=== PATIENT | male | born 1955 | race Caucasian/White ===

== ENCOUNTER 2016-11-10 09:42 | Emergency (ER) | payer SELFPAY ==
[~2016-11-10] VITALS: Ht 170.2 cm; Wt 75.0 kg
[2016-11-10 15:39] VITALS: BP 115/68
== END 2016-11-10 15:45 | disposition home or self-care (01) ==
LOC: ER 10:39
DX: I83.92 Asymptomatic varicose veins of left lower extremity (principal); F11.10 Opioid abuse, uncomplicated; E05.90 Thyrotoxicosis, unspecified without thyrotoxic crisis or storm; I10 Essential (primary) hypertension; J45.909 Unspecified asthma, uncomplicated
CPT/HCPCS: 99283; Z7610

== ENCOUNTER 2017-05-11 00:01 | Emergency (ER) | payer MEDICAID ==
[~2017-05-11] VITALS: Ht 160 cm; Wt 82.0 kg
[2017-05-11] MEDS ORDERED: TETANUS, DIPHTHERIA, PERTUSSIS VAC/PF 0.5ML (>7YR OLD) IM ONE (01:30)
[2017-05-11] MEDS ORDERED: SULFAMETHOXAZOLE/TRIMETHOPRIM 800/160MG TABLET PO ONE (01:30)
[2017-05-11] MEDS ORDERED: HYDROCODONE/ACETAMINOPHEN 10/325MG TABLET PO ONE (01:30)
[2017-05-11] MEDS ORDERED: BACITRACIN ZINC OINT UDPKT TOP ONE (01:30)
[2017-05-11 05:04] VITALS: BP 136/97
== END 2017-05-11 05:34 | disposition home or self-care (01) ==
LOC: ER 00:01
DX: I83.891 Varicose veins of right lower extremity with other complications (principal); R07.89 Other chest pain; M79.605 Pain in left leg; I10 Essential (primary) hypertension; F17.200 Nicotine dependence, unspecified, uncomplicated; F11.10 Opioid abuse, uncomplicated; V28.4XXA Motorcycle driver injured in noncollision transport accident in traffic accident, initial encounter; Y93.55 Activity, bike riding; Y92.89 Other specified places as the place of occurrence of the external cause; Y99.8 Other external cause status
CPT/HCPCS: 71045; 73590; 90471; 90715; 99284; Z7610

== ENCOUNTER 2018-06-08 06:04 | Emergency (ER) | payer MEDICAID ==
[~2018-06-08] VITALS: Ht 170.2 cm; Wt 80.0 kg
[2018-06-08] MEDS ORDERED: SODIUM CHLORIDE 0.9% 1,000 ML IV ONE (07:16)
[2018-06-08] MEDS ORDERED: MORPHINE SULFATE 2 MG/ML CPJ (NOT FOR IM USE) IV ONE (07:30)
[2018-06-08 08:19] LABS: BASOPHILS % 1.3 % (0.0-2.0); EOSINOPHILS % 1.7 % (0.0-5.0); HEMATOCRIT. 34.7 % (42.0-52.0); HEMOGLOBIN. 11.4 g/dL (14.0-18.0); LYMPHOCYTES % 40.4 % (20.0-50.0); MEAN CORPUSCULAR HEMOGLOBIN 27.9 pg (28.0-32.0); MEAN CORPUSCULAR VOLUME 84.5 fL (80.0-94.0); MEAN PLATELET VOLUME 7.8 fl (7.4-10.4); MONOCYTES % 10.2 % (2.0-8.0); NEUTROPHILS % 46.4 % (40.0-76.0); PLATELET 190 x1000/uL (130-400); RED CELL DISTRIBUTION WIDTH 16.7 % (11.6-14.6)
[2018-06-08 08:24] LABS: CHLORIDE 102 mEq/L (98-107)
[2018-06-08 08:25] LABS: INR 1.2
[2018-06-08 08:29] LABS: ETHANOL BLOOD < 10 mg/dL
[2018-06-08 08:35] LABS: CREATINE KINASE MB FRACTION 4.9 ng/mL (0.5-3.6)
[2018-06-08 09:12] VITALS: BP 141/87
[2018-06-08] MEDS ORDERED: LIDOCAINE HCL 1% 20ML VIAL (Pyxis) INJ INFIL ONE (09:30)
[2018-06-08] MEDS ORDERED: MORPHINE SULFATE 4 MG/ML CPJ (NOT FOR IM USE) IV NR (10:09)
== END 2018-06-08 11:44 | disposition left against medical advice (07) ==
LOC: ER 06:21 → CANBEDREQ 12:18
DX: S09.8XXA Other specified injuries of head, initial encounter (principal); S01.81XA Laceration without foreign body of other part of head, initial encounter; R94.31 Abnormal electrocardiogram [ECG] [EKG]; I10 Essential (primary) hypertension; M50.323 Other cervical disc degeneration at C6-C7 level; J44.9 Chronic obstructive pulmonary disease, unspecified; W01.198A Fall on same level from slipping, tripping and stumbling with subsequent striking against other object, initial encounter; Y93.E1 Activity, personal bathing and showering; Y92.9 Unspecified place or not applicable; Z90.49 Acquired absence of other specified parts of digestive tract; Z98.890 Other specified postprocedural states
CPT/HCPCS: 36415; 70450; 72125; 80053; 82553; 83880; 84484; 85025; 85610; 87186; 93005; 99284; J3490; J7030; Z7610; J2270

== ENCOUNTER 2018-06-19 10:54 | Emergency (ER) | payer MEDICAID ==
[~2018-06-19] VITALS: Ht 160 cm; Wt 79.0 kg
[2018-06-19 11:29] VITALS: BP 170/98
== END 2018-06-19 14:06 | disposition home or self-care (01) ==
LOC: ER 10:54
DX: Z48.02 Encounter for removal of sutures (principal); J44.9 Chronic obstructive pulmonary disease, unspecified; I10 Essential (primary) hypertension; F17.200 Nicotine dependence, unspecified, uncomplicated; Z90.49 Acquired absence of other specified parts of digestive tract; Z98.890 Other specified postprocedural states
CPT/HCPCS: 99281; Z7610

== ENCOUNTER 2020-12-04 19:37 | Inpatient (IN) | payer MEDICAID ==
[~2020-12-04] VITALS: Ht 160 cm; Wt 62.6 kg
[2020-12-04] MEDS ORDERED: ALBUTEROL (0.083%) 2.5MG/3ML NEB HHN ONE (19:45)
[2020-12-04] MEDS ORDERED: AZITHROMYCIN 500 MG in DEXT 5% WATER 250 ML IV SCH (19:45)
[2020-12-04] MEDS ORDERED: METHYLPREDNISOLONE SOD SUCC 125 MG/2 ML VIAL IV ONE (19:45)
[2020-12-04] MEDS ORDERED: CEFTRIAXONE 1 G PREMIX 50 ML IV ONE (19:45)
[2020-12-04] MEDS ORDERED: IPRATROPIUM BROMIDE (0.02%) 0.5MG/2.5ML NEB HHN ONE (19:45)
[2020-12-04] MEDS ORDERED: SODIUM CHLORIDE 0.9% 500 ML IV ONE (21:00)
[2020-12-04 21:18] LABS: HEMATOCRIT. 41.4 % (42.0-52.0); HEMOGLOBIN. 14.3 g/dL (14.0-18.0); MEAN CORPUSCULAR HEMOGLOBIN 29.8 pg (28.0-32.0); MEAN CORPUSCULAR VOLUME 86.2 fL (80.0-94.0); MEAN PLATELET VOLUME 7.9 fl (7.4-10.4); PLATELET 346 x1000/uL (130-400); RED CELL DISTRIBUTION WIDTH 15.9 % (11.6-14.6)
[2020-12-04 21:23] LABS: CHLORIDE 93 mEq/L (98-107)
[2020-12-04] MEDS ORDERED: POTASSIUM CHLORIDE 20MEQ TABLET SR PO STA (21:50)
[2020-12-04] MEDS ORDERED: KCL 20MEQ/100ML PREMIX 100 ML IV ONE (22:00)
[2020-12-04] MEDS ORDERED: ONDANSETRON HCL 4MG/2ML INJ IV ONE (22:15)
[2020-12-04 22:33] LABS: BG BASE EXCESS 8.9 mmol/L (-2.0-2.0); BG CARBOXYHEMOGLOBIN 0.8 % (0.5-1.5); BG DEOXYHEMOGLOBIN 6.1 % (0.0-5.0); BG FRACTION INSPIRED OXYGEN 100; BG HCO3 ACT 33.1 mmol/L (22.0-26.0); BG OXYGEN SATURATION 93.9 % (92.0-98.5); BG OXYHEMOGLOBIN 93.1 % (94.0-97.0); BG PCO2 43.1 mmHg (35.0-45.0); BG PH 7.503 (7.350-7.450); BG PO2 68.7 mmHg (75.0-100.0); BG SAMPLE SITE RIGHT RADIAL; BG TOTAL HEMOGLOBIN 15.4 g/dL (12.0-18.0); BG VENT MODE MASK - CPAP
[2020-12-04 22:43] LABS: PLATELET ESTIMATE NORMAL
[2020-12-05] VITALS (17 sets, daily range): BP systolic 135–199; BP diastolic 86–146
[2020-12-05] MEDS ORDERED: PIPERACILLIN/TAZ 3.375G PREMIX 50 ML IV ONE (02:30)
[2020-12-05] MEDS ORDERED: VANCOMYCIN 1 G PREMIX 200 ML IV ONE (02:30)
[2020-12-05 03:26] LABS: BG BASE EXCESS 6.2 mmol/L (-2.0-2.0); BG CARBOXYHEMOGLOBIN 0.2 % (0.5-1.5); BG DEOXYHEMOGLOBIN 6.9 % (0.0-5.0); BG FRACTION INSPIRED OXYGEN 100; BG HCO3 ACT 30.4 mmol/L (22.0-26.0); BG METHEMOGLOBIN 0.1 % (0.0-1.5); BG OXYGEN SATURATION 93.1 % (92.0-98.5); BG OXYHEMOGLOBIN 92.8 % (94.0-97.0); BG PH 7.477 (7.350-7.450); BG PO2 66.6 mmHg (75.0-100.0); BG SAMPLE SITE RIGHT RADIAL; BG TOTAL HEMOGLOBIN 14.9 g/dL (12.0-18.0); BG VENT MODE MASK - NRB
[2020-12-05] MEDS ORDERED: POTASSIUM CHLORIDE INJ 30 MEQ in DEXT 5%/0.9% NACL 1,000 ML IV ONE (03:45)
[2020-12-05] MEDS ORDERED: MORPHINE SULFATE 4 MG/ML CPJ (NOT FOR IM USE) IV ONE (04:15)
[2020-12-05] MEDS ORDERED: NALOXONE HCL 0.4MG/ML VIAL IV PRN (07:00)
[2020-12-05 09:09] LABS: BG BASE EXCESS 6.4 mmol/L (-2.0-2.0); BG CARBOXYHEMOGLOBIN 0.2 % (0.5-1.5); BG DEOXYHEMOGLOBIN 9.6 % (0.0-5.0); BG FRACTION INSPIRED OXYGEN 100; BG HCO3 ACT 29.8 mmol/L (22.0-26.0); BG METHEMOGLOBIN 0.1 % (0.0-1.5); BG OXYGEN SATURATION 90.4 % (92.0-98.5); BG OXYHEMOGLOBIN 90.1 % (94.0-97.0); BG PCO2 38.7 mmHg (35.0-45.0); BG PH 7.505 (7.350-7.450); BG SAMPLE SITE RIGHT BRACHIAL; BG VENT MODE MASK - NRB
[2020-12-05 11:01] LABS: HEMATOCRIT. 37.7 % (42.0-52.0); HEMOGLOBIN. 12.4 g/dL (14.0-18.0); MEAN CORPUSCULAR HEMOGLOBIN 28.8 pg (28.0-32.0); MEAN CORPUSCULAR VOLUME 87.5 fL (80.0-94.0); MEAN PLATELET VOLUME 8.2 fl (7.4-10.4); PLATELET 219 x1000/uL (130-400); RED CELL DISTRIBUTION WIDTH 15.6 % (11.6-14.6)
[2020-12-05] MEDS ORDERED: DEXT 5%/0.9% NACL 1,000 ML IV ONE (14:00)
[2020-12-05] MEDS ORDERED: CEFTRIAXONE 1 G PREMIX 50 ML IV SCH (14:30)
[2020-12-05] MEDS: MORPHINE SULFATE 4 MG/ML CPJ (NOT FOR IM USE) IV PRN ×2 (15:03→20:36)
[2020-12-05] MEDS: ZINC SULFATE 220 MG ( 50 ) CAPSULE PO SCH (17:00)
[2020-12-05] MEDS ORDERED: ALBUTEROL 6.7GM HFA INHALER ORI PRN (17:00)
[2020-12-05] MEDS ORDERED: HYDRALAZINE 20MG/ML VIAL IV PRN (18:15)
[2020-12-05] MEDS: ASCORBIC ACID 500 MG TABLET PO SCH (20:18)
[2020-12-05] MEDS: CEFTRIAXONE 1,000 MG in DEXTROSE 5% WATER 50 ML IV SCH (20:18)
[2020-12-05] MEDS: METHYLPREDNISOLONE SOD SUCC 125 MG/2 ML VIAL IV SCH (22:55)
[2020-12-05] MEDS: HYDRALAZINE 20MG/ML VIAL IV PRN (23:03)
[2020-12-06] VITALS (35 sets, daily range): BP systolic 117–196; BP diastolic 67–119
[2020-12-06] MEDS: HYDRALAZINE 20MG/ML VIAL IV PRN ×3 (03:05→22:16)
[2020-12-06 05:43] LABS: HEMATOCRIT. 35.1 % (42.0-52.0); HEMOGLOBIN. 11.9 g/dL (14.0-18.0); MEAN CORPUSCULAR VOLUME 85.7 fL (80.0-94.0); MEAN PLATELET VOLUME 8.7 fl (7.4-10.4); PLATELET 220 x1000/uL (130-400); RED CELL DISTRIBUTION WIDTH 15.6 % (11.6-14.6)
[2020-12-06 05:51] LABS: CHLORIDE 100 mEq/L (98-107)
[2020-12-06] MEDS: METHYLPREDNISOLONE SOD SUCC 125 MG/2 ML VIAL IV SCH ×3 (05:54→21:11)
[2020-12-06] MEDS: MORPHINE SULFATE 4 MG/ML CPJ (NOT FOR IM USE) IV PRN ×3 (06:00→17:53)
[2020-12-06 07:59] LABS: PLATELET ESTIMATE NORMAL
[2020-12-06 08:48] LABS: BG BASE EXCESS 0.4 mmol/L (-2.0-2.0); BG DEOXYHEMOGLOBIN 7.8 % (0.0-5.0); BG FRACTION INSPIRED OXYGEN 40; BG HCO3 ACT 22.5 mmol/L (22.0-26.0); BG METHEMOGLOBIN 0.3 % (0.0-1.5); BG OXYGEN SATURATION 92.2 % (92.0-98.5); BG OXYHEMOGLOBIN 91.9 % (94.0-97.0); BG PCO2 28.8 mmHg (35.0-45.0); BG PH 7.511 (7.350-7.450); BG PO2 59.7 mmHg (75.0-100.0); BG SAMPLE SITE RIGHT BRACHIAL; BG TOTAL HEMOGLOBIN 12.3 g/dL (12.0-18.0); BG VENT MODE HIGH FLOW
[2020-12-06] MEDS: ASCORBIC ACID 500 MG TABLET PO SCH ×2 (09:00→21:11)
[2020-12-06] MEDS: ZINC SULFATE 220 MG ( 50 ) CAPSULE PO SCH (09:00)
[2020-12-06] MEDS: METHADONE HCL 10MG TABLET PO SCH (13:35)
[2020-12-06] MEDS ORDERED: FUROSEMIDE 20MG/2ML VIAL IVP NR (15:15)
[2020-12-06 17:08] LABS: PLATELET ESTIMATE NORMAL
[2020-12-06] MEDS: CEFTRIAXONE 1,000 MG in DEXTROSE 5% WATER 50 ML IV SCH (21:10)
[2020-12-06] MEDS: AMLODIPINE 5MG TABLET PO SCH (21:11)
[2020-12-07] VITALS (10 sets, daily range): BP systolic 110–179; BP diastolic 82–110
[2020-12-07] MEDS: MORPHINE SULFATE 4 MG/ML CPJ (NOT FOR IM USE) IV PRN ×2 (03:26→13:09)
[2020-12-07] MEDS: METHYLPREDNISOLONE SOD SUCC 125 MG/2 ML VIAL IV SCH ×3 (05:19→21:17)
[2020-12-07] MEDS: METHADONE HCL 10MG TABLET PO SCH (08:34)
[2020-12-07] MEDS: AMLODIPINE 5MG TABLET PO SCH (08:34)
[2020-12-07] MEDS: ASCORBIC ACID 500 MG TABLET PO SCH ×2 (08:34→21:17)
[2020-12-07] MEDS: ZINC SULFATE 220 MG ( 50 ) CAPSULE PO SCH (08:34)
[2020-12-07 12:08] LABS: BG BASE EXCESS 1.5 mmol/L (-2.0-2.0); BG CARBOXYHEMOGLOBIN 0.3 % (0.5-1.5); BG DEOXYHEMOGLOBIN 11.2 % (0.0-5.0); BG HCO3 ACT 24.6 mmol/L (22.0-26.0); BG OXYGEN SATURATION 88.8 % (92.0-98.5); BG OXYHEMOGLOBIN 88.5 % (94.0-97.0); BG PCO2 33.8 mmHg (35.0-45.0); BG PH 7.479 (7.350-7.450); BG PO2 53.6 mmHg (75.0-100.0); BG SAMPLE SITE RIGHT RADIAL; BG VENT MODE ROOM AIR
[2020-12-07] MEDS: AZITHROMYCIN 500 MG in DEXT 5% WATER 250 ML IV SCH (13:08)
[2020-12-07] MEDS: ENOXAPARIN 40MG/0.4ML SYR SUBCUT SCH (13:10)
[2020-12-07 18:31] LABS: HEMATOCRIT. 34.2 % (42.0-52.0); HEMOGLOBIN. 11.4 g/dL (14.0-18.0); MEAN PLATELET VOLUME 8.7 fl (7.4-10.4); PLATELET 207 x1000/uL (130-400); RED BLOOD CELL COUNT 3.93 mill/uL (4.7-6.1); RED CELL DISTRIBUTION WIDTH 15.3 % (11.6-14.6)
[2020-12-07 18:37] LABS: CHLORIDE 102 mEq/L (98-107)
[2020-12-07 20:18] LABS: PLATELET ESTIMATE NORMAL
[2020-12-07] MEDS: CEFTRIAXONE 1,000 MG in DEXTROSE 5% WATER 50 ML IV SCH (21:00)
[2020-12-08] VITALS (10 sets, daily range): BP systolic 103–179; BP diastolic 58–103
[2020-12-08] MEDS: METHYLPREDNISOLONE SOD SUCC 125 MG/2 ML VIAL IV SCH ×3 (05:00→21:01)
[2020-12-08 07:07] LABS: BASOPHILS % 0.1 % (0.0-2.0); EOSINOPHILS % 0.1 % (0.0-5.0); HEMATOCRIT. 34.4 % (42.0-52.0); HEMOGLOBIN. 11.4 g/dL (14.0-18.0); LYMPHOCYTES % 8.7 % (20.0-50.0); MEAN CORPUSCULAR VOLUME 87.1 fL (80.0-94.0); MEAN PLATELET VOLUME 8.9 fl (7.4-10.4); MONOCYTES % 6.3 % (2.0-8.0); NEUTROPHILS % 84.8 % (40.0-76.0); PLATELET 173 x1000/uL (130-400); RED BLOOD CELL COUNT 3.95 mill/uL (4.7-6.1); RED CELL DISTRIBUTION WIDTH 15.3 % (11.6-14.6)
[2020-12-08 07:10] LABS: CHLORIDE 104 mEq/L (98-107)
[2020-12-08] MEDS ORDERED: LIDOCAINE HCL 1% 20ML VIAL (Pyxis) INJ ONE (08:36)
[2020-12-08] MEDS: AMLODIPINE 5MG TABLET PO SCH (09:53)
[2020-12-08] MEDS: ASCORBIC ACID 500 MG TABLET PO SCH ×2 (09:53→21:01)
[2020-12-08] MEDS: ZINC SULFATE 220 MG ( 50 ) CAPSULE PO SCH (09:53)
[2020-12-08] MEDS: METHADONE HCL 10MG TABLET PO SCH (09:57)
[2020-12-08] MEDS ORDERED: FUROSEMIDE 40MG/4ML VIAL IVP NR (12:53)
[2020-12-08] MEDS: AZITHROMYCIN 500 MG in DEXT 5% WATER 250 ML IV SCH (13:19)
[2020-12-08] MEDS ORDERED: IOHEXOL-350 100 ML BOTTLE ONE (13:28)
[2020-12-08] MEDS ORDERED: POTASSIUM CHLORIDE INJ 40 MEQ in DEXT 5% WATER 500 ML IV NR (14:30)
[2020-12-08] MEDS: ENOXAPARIN 40MG/0.4ML SYR SUBCUT SCH (16:56)
[2020-12-08] MEDS: CEFTRIAXONE 1,000 MG in DEXTROSE 5% WATER 50 ML IV SCH (21:01)
[2020-12-09 03:35] VITALS: BP 150/79
[2020-12-09] MEDS: METHYLPREDNISOLONE SOD SUCC 125 MG/2 ML VIAL IV SCH ×3 (05:41→22:07)
[2020-12-09] MEDS: MORPHINE SULFATE 4 MG/ML CPJ (NOT FOR IM USE) IV PRN ×2 (05:42→22:23)
[2020-12-09 07:37] LABS: BASOPHILS % 0.1 % (0.0-2.0); HEMATOCRIT. 34.7 % (42.0-52.0); HEMOGLOBIN. 11.5 g/dL (14.0-18.0); LYMPHOCYTES % 9.1 % (20.0-50.0); MEAN CORPUSCULAR HEMOGLOBIN 28.6 pg (28.0-32.0); MEAN CORPUSCULAR VOLUME 86.4 fL (80.0-94.0); MEAN PLATELET VOLUME 9.1 fl (7.4-10.4); MONOCYTES % 3.3 % (2.0-8.0); NEUTROPHILS % 87.5 % (40.0-76.0); PLATELET 170 x1000/uL (130-400); RED BLOOD CELL COUNT 4.02 mill/uL (4.7-6.1)
[2020-12-09 08:00] VITALS: BP 163/94
[2020-12-09 08:17] LABS: CHLORIDE 100 mEq/L (98-107)
[2020-12-09] MEDS: ZINC SULFATE 220 MG ( 50 ) CAPSULE PO SCH (08:35)
[2020-12-09] MEDS: METHADONE HCL 10MG TABLET PO SCH (08:35)
[2020-12-09] MEDS: ASCORBIC ACID 500 MG TABLET PO SCH ×2 (08:36→22:07)
[2020-12-09] MEDS: AMLODIPINE 5MG TABLET PO SCH (08:36)
[2020-12-09 08:50] LABS: BG BASE EXCESS 3.1 mmol/L (-2.0-2.0); BG CARBOXYHEMOGLOBIN 0.3 % (0.5-1.5); BG DEOXYHEMOGLOBIN 3.3 % (0.0-5.0); BG FRACTION INSPIRED OXYGEN 40; BG HCO3 ACT 28.4 mmol/L (22.0-26.0); BG OXYGEN SATURATION 96.7 % (92.0-98.5); BG OXYHEMOGLOBIN 96.4 % (94.0-97.0); BG PCO2 46.3 mmHg (35.0-45.0); BG PH 7.406 (7.350-7.450); BG PO2 90.3 mmHg (75.0-100.0); BG SAMPLE SITE RIGHT BRACHIAL; BG TOTAL HEMOGLOBIN 12.8 g/dL (12.0-18.0); BG VENT MODE HIGH FLOW
[2020-12-09] MEDS: ALBUTEROL (0.083%) 2.5MG/3ML NEB HHN PRN (08:56)
[2020-12-09 12:00] VITALS: BP 157/80
[2020-12-09] MEDS ORDERED: POTASSIUM CHLORIDE INJ 40 MEQ in DEXT 5% WATER 250 ML IV NR (14:00)
[2020-12-09] MEDS ORDERED: MAGNESIUM 4 G PREMIX 100 ML IV NR (14:30)
[2020-12-09] MEDS: ENOXAPARIN 40MG/0.4ML SYR SUBCUT SCH (14:35)
[2020-12-09 16:00] VITALS: BP 144/85
[2020-12-09 20:00] VITALS: BP 136/86
[2020-12-09] MEDS: ONDANSETRON HCL 4MG/2ML INJ IV PRN (22:22)
[2020-12-10] VITALS (7 sets, daily range): BP systolic 127–155; BP diastolic 28–96
[2020-12-10] MEDS: HYDRALAZINE 20MG/ML VIAL IV PRN (02:53)
[2020-12-10] MEDS: METHYLPREDNISOLONE SOD SUCC 125 MG/2 ML VIAL IV SCH ×3 (05:55→20:22)
[2020-12-10] MEDS: ONDANSETRON HCL 4MG/2ML INJ IV PRN (05:55)
[2020-12-10] MEDS: MORPHINE SULFATE 4 MG/ML CPJ (NOT FOR IM USE) IV PRN ×3 (05:56→20:52)
[2020-12-10] MEDS: METHADONE HCL 10MG TABLET PO SCH (09:07)
[2020-12-10] MEDS: AMLODIPINE 5MG TABLET PO SCH (09:08)
[2020-12-10] MEDS: ZINC SULFATE 220 MG ( 50 ) CAPSULE PO SCH (09:08)
[2020-12-10] MEDS: ASCORBIC ACID 500 MG TABLET PO SCH ×2 (09:08→20:22)
[2020-12-10 13:04] LABS: BG BASE EXCESS 3.4 mmol/L (-2.0-2.0); BG DEOXYHEMOGLOBIN 4.6 % (0.0-5.0); BG FRACTION INSPIRED OXYGEN 40; BG HCO3 ACT 27.8 mmol/L (22.0-26.0); BG METHEMOGLOBIN 0.1 % (0.0-1.5); BG OXYGEN SATURATION 95.4 % (92.0-98.5); BG OXYHEMOGLOBIN 95.3 % (94.0-97.0); BG PCO2 41.5 mmHg (35.0-45.0); BG PH 7.444 (7.350-7.450); BG PO2 76.6 mmHg (75.0-100.0); BG SAMPLE SITE LEFT RADIAL; BG TOTAL HEMOGLOBIN 12.3 g/dL (12.0-18.0); BG VENT MODE HIGH FLOW
[2020-12-10] MEDS: ENOXAPARIN 40MG/0.4ML SYR SUBCUT SCH (13:09)
[2020-12-10 16:24] LABS: CHLORIDE 101 mEq/L (98-107)
[2020-12-11] VITALS (10 sets, daily range): BP systolic 136–172; BP diastolic 75–120
[2020-12-11] MEDS: METHYLPREDNISOLONE SOD SUCC 125 MG/2 ML VIAL IV SCH ×3 (05:40→22:08)
[2020-12-11 07:16] LABS: BASOPHILS % 0.1 % (0.0-2.0); EOSINOPHILS % 0.1 % (0.0-5.0); HEMATOCRIT. 34.6 % (42.0-52.0); HEMOGLOBIN. 11.6 g/dL (14.0-18.0); LYMPHOCYTES % 8.8 % (20.0-50.0); MEAN CORPUSCULAR HEMOGLOBIN 29.1 pg (28.0-32.0); MEAN CORPUSCULAR VOLUME 86.9 fL (80.0-94.0); MEAN PLATELET VOLUME 8.6 fl (7.4-10.4); MONOCYTES % 5.1 % (2.0-8.0); NEUTROPHILS % 85.9 % (40.0-76.0); PLATELET 226 x1000/uL (130-400); RED BLOOD CELL COUNT 3.98 mill/uL (4.7-6.1)
[2020-12-11] MEDS: MORPHINE SULFATE 4 MG/ML CPJ (NOT FOR IM USE) IV PRN ×2 (07:23→17:30)
[2020-12-11 07:25] LABS: CHLORIDE 101 mEq/L (98-107)
[2020-12-11 07:34] LABS: C REACTIVE PROTEIN QUANT 6.8 mg/L (0.0-3.0)
[2020-12-11] MEDS: ASCORBIC ACID 500 MG TABLET PO SCH ×2 (08:17→22:09)
[2020-12-11] MEDS: ZINC SULFATE 220 MG ( 50 ) CAPSULE PO SCH (08:17)
[2020-12-11] MEDS: AMLODIPINE 5MG TABLET PO SCH (08:18)
[2020-12-11] MEDS: METHADONE HCL 10MG TABLET PO SCH (08:19)
[2020-12-11] MEDS: HYDRALAZINE 20MG/ML VIAL IV PRN (11:48)
[2020-12-11] MEDS: ENOXAPARIN 40MG/0.4ML SYR SUBCUT SCH (13:19)
[2020-12-11] MEDS ORDERED: NALOXONE HCL 0.4MG/ML VIAL IV PRN (16:30)
[2020-12-12] VITALS (12 sets, daily range): BP systolic 60–171; BP diastolic 35–110
[2020-12-12] MEDS: MORPHINE SULFATE 4 MG/ML CPJ (NOT FOR IM USE) IV PRN ×3 (02:37→23:16)
[2020-12-12] MEDS: METHYLPREDNISOLONE SOD SUCC 125 MG/2 ML VIAL IV SCH ×3 (05:42→20:41)
[2020-12-12] MEDS: HYDRALAZINE 20MG/ML VIAL IV PRN (05:42)
[2020-12-12 07:03] LABS: CHLORIDE 99 mEq/L (98-107)
[2020-12-12 07:10] LABS: BASOPHILS % 0.3 % (0.0-2.0); HEMOGLOBIN. 11.9 g/dL (14.0-18.0); LYMPHOCYTES % 8.2 % (20.0-50.0); MEAN CORPUSCULAR HEMOGLOBIN 28.9 pg (28.0-32.0); MEAN CORPUSCULAR VOLUME 87.3 fL (80.0-94.0); MEAN PLATELET VOLUME 8.5 fl (7.4-10.4); NEUTROPHILS % 87.5 % (40.0-76.0); PLATELET 167 x1000/uL (130-400); RED BLOOD CELL COUNT 4.12 mill/uL (4.7-6.1); RED CELL DISTRIBUTION WIDTH 15.3 % (11.6-14.6)
[2020-12-12] MEDS: ZINC SULFATE 220 MG ( 50 ) CAPSULE PO SCH (08:41)
[2020-12-12] MEDS: AMLODIPINE 5MG TABLET PO SCH (08:41)
[2020-12-12] MEDS: ASCORBIC ACID 500 MG TABLET PO SCH ×2 (08:41→20:41)
[2020-12-12] MEDS: METHADONE HCL 10MG TABLET PO SCH (10:25)
[2020-12-12] MEDS: ENOXAPARIN 40MG/0.4ML SYR SUBCUT SCH (13:13)
[2020-12-13] VITALS (9 sets, daily range): BP systolic 149–168; BP diastolic 82–104
[2020-12-13] MEDS: METHYLPREDNISOLONE SOD SUCC 125 MG/2 ML VIAL IV SCH ×3 (04:39→20:38)
[2020-12-13 07:26] LABS: CHLORIDE 100 mEq/L (98-107)
[2020-12-13] MEDS: ASCORBIC ACID 500 MG TABLET PO SCH ×2 (09:34→20:38)
[2020-12-13] MEDS: ZINC SULFATE 220 MG ( 50 ) CAPSULE PO SCH (09:34)
[2020-12-13] MEDS: AMLODIPINE 5MG TABLET PO SCH (09:38)
[2020-12-13] MEDS: METHADONE HCL 10MG TABLET PO SCH (09:40)
[2020-12-13 10:06] LABS: HEMATOCRIT. 34.4 % (42.0-52.0); HEMOGLOBIN. 11.5 g/dL (14.0-18.0); MEAN CORPUSCULAR HEMOGLOBIN 29.1 pg (28.0-32.0); MEAN CORPUSCULAR VOLUME 87.5 fL (80.0-94.0); PLATELET 233 x1000/uL (130-400); RED BLOOD CELL COUNT 3.93 mill/uL (4.7-6.1); RED CELL DISTRIBUTION WIDTH 15.3 % (11.6-14.6)
[2020-12-13 10:35] LABS: PLATELET ESTIMATE NORMAL
[2020-12-13] MEDS: ENOXAPARIN 40MG/0.4ML SYR SUBCUT SCH (14:25)
[2020-12-13] MEDS: MORPHINE SULFATE 4 MG/ML CPJ (NOT FOR IM USE) IV PRN ×2 (14:26→20:45)
[2020-12-14] VITALS: BP 180/113
[2020-12-14] MEDS: HYDRALAZINE 20MG/ML VIAL IV PRN (01:06)
[2020-12-14 04:00] VITALS: BP 158/97
[2020-12-14] MEDS: METHYLPREDNISOLONE SOD SUCC 125 MG/2 ML VIAL IV SCH ×3 (05:23→21:20)
[2020-12-14] MEDS: MORPHINE SULFATE 4 MG/ML CPJ (NOT FOR IM USE) IV PRN ×3 (05:24→21:41)
[2020-12-14 08:00] VITALS: BP 157/98
[2020-12-14] MEDS: AMLODIPINE 5MG TABLET PO SCH (10:00)
[2020-12-14] MEDS: ZINC SULFATE 220 MG ( 50 ) CAPSULE PO SCH (10:00)
[2020-12-14] MEDS: METHADONE HCL 10MG TABLET PO SCH (10:00)
[2020-12-14] MEDS: ASCORBIC ACID 500 MG TABLET PO SCH ×2 (10:01→21:20)
[2020-12-14 12:00] VITALS: BP 154/97
[2020-12-14] MEDS: ENOXAPARIN 40MG/0.4ML SYR SUBCUT SCH (17:15)
[2020-12-14 20:00] VITALS: BP 142/91
[2020-12-15] VITALS (12 sets, daily range): BP systolic 123–171; BP diastolic 89–125
[2020-12-15] MEDS: MORPHINE SULFATE 4 MG/ML CPJ (NOT FOR IM USE) IV PRN ×2 (04:29→10:51)
[2020-12-15] MEDS: METHYLPREDNISOLONE SOD SUCC 125 MG/2 ML VIAL IV SCH ×3 (05:18→22:04)
[2020-12-15] MEDS: HYDRALAZINE 20MG/ML VIAL IV PRN (05:25)
[2020-12-15] MEDS: ALBUTEROL (0.083%) 2.5MG/3ML NEB HHN PRN ×2 (05:55→14:51)
[2020-12-15] MEDS: AMLODIPINE 5MG TABLET PO SCH (09:44)
[2020-12-15] MEDS: ZINC SULFATE 220 MG ( 50 ) CAPSULE PO SCH (09:44)
[2020-12-15] MEDS: ASCORBIC ACID 500 MG TABLET PO SCH ×2 (09:44→22:04)
[2020-12-15] MEDS: METHADONE HCL 10MG TABLET PO SCH (10:49)
[2020-12-15 13:23] LABS: BG CARBOXYHEMOGLOBIN 0.3 % (0.5-1.5); BG DEOXYHEMOGLOBIN 5.4 % (0.0-5.0); BG FRACTION INSPIRED OXYGEN 21; BG HCO3 ACT 26.4 mmol/L (22.0-26.0); BG METHEMOGLOBIN 0.3 % (0.0-1.5); BG OXYGEN SATURATION 94.6 % (92.0-98.5); BG PCO2 36.2 mmHg (35.0-45.0); BG PO2 70.2 mmHg (75.0-100.0); BG SAMPLE SITE RIGHT RADIAL; BG TOTAL HEMOGLOBIN 12.7 g/dL (12.0-18.0); BG VENT MODE ROOM AIR
[2020-12-15] MEDS: ENOXAPARIN 40MG/0.4ML SYR SUBCUT SCH (14:53)
[2020-12-16 02:54] VITALS: BP 134/93
[2020-12-16 03:39] VITALS: BP 134/93
[2020-12-16] MEDS: METHYLPREDNISOLONE SOD SUCC 125 MG/2 ML VIAL IV SCH (05:11)
[2020-12-16 07:13] VITALS: BP 134/93
[2020-12-16 08:00] VITALS: BP 132/85
[2020-12-16] MEDS: ZINC SULFATE 220 MG ( 50 ) CAPSULE PO SCH (08:16)
[2020-12-16] MEDS: ASCORBIC ACID 500 MG TABLET PO SCH (08:17)
[2020-12-16] MEDS: AMLODIPINE 5MG TABLET PO SCH (08:17)
[2020-12-16 09:30] VITALS: BP 128/85
[2020-12-16 09:33] VITALS: BP 138/89
[2020-12-16] MEDS: METHADONE HCL 10MG TABLET PO SCH (09:33)
== END 2020-12-16 09:45 | disposition home or self-care (01) | DRG 720 ==
LOC: ER 19:37 → MICUSO 21:59 → 5EST 12-06 19:35
PROVIDERS: ADMIT Internal Medicine; ATTEND Internal Medicine
PROC: 5A09357 Assistance with Respiratory Ventilation, Less than 24 Consecutive Hours, Continuous Positive Airway Pressure (ICD-10-PCS; 2020-12-04)
PROC: 5A0945A Assistance with Respiratory Ventilation, 24-96 Consecutive Hours, High Flow/Velocity Cannula (ICD-10-PCS; 2020-12-05)
PROC: 02HV33Z Insertion of Infusion Device into Superior Vena Cava, Percutaneous Approach (ICD-10-PCS; principal; 2020-12-08)
PROC: B548ZZA Ultrasonography of Superior Vena Cava, Guidance (ICD-10-PCS; 2020-12-08)
DX: A41.9 Sepsis, unspecified organism (principal); J96.01 Acute respiratory failure with hypoxia; J18.9 Pneumonia, unspecified organism; J44.0 Chronic obstructive pulmonary disease with (acute) lower respiratory infection; K40.30 Unilateral inguinal hernia, with obstruction, without gangrene, not specified as recurrent; F17.210 Nicotine dependence, cigarettes, uncomplicated; I10 Essential (primary) hypertension; R65.20 Severe sepsis without septic shock; E87.6 Hypokalemia; Z20.822 Contact with and (suspected) exposure to COVID-19; Z90.49 Acquired absence of other specified parts of digestive tract; Z59.0 Homelessness; Z82.49 Family history of ischemic heart disease and other diseases of the circulatory system; Z83.3 Family history of diabetes mellitus; Z79.899 Other long term (current) drug therapy
CPT/HCPCS: 36415; 36600; 71045; 71250; 71275; 74018; 74176; 76937; 80048; 80053; 80076; 82375; 82728; 82805; 83605; 83735; 83880; 84145; 84484; 85025; 85379; 86140; 87426; 93005; 93306; 93970; 94640; 97162; 99291; C1725; C1893; J0360; J0456; J0696; J1650; J1940; J2270; J2405; J2543; J2930; J3370; J3475; J3480; J3490; J7040; J7042; J7060; Q9967; U0003; U0005

== ENCOUNTER 2021-05-20 16:34 | Inpatient (IN) | payer MEDICAID ==
[~2021-05-20] VITALS: Ht 162.6 cm; Wt 70.3 kg
[2021-05-20 18:27] LABS: BASOPHILS % 0.9 % (0.0-2.0); EOSINOPHILS % 0.9 % (0.0-5.0); HEMATOCRIT. 28.6 % (42.0-52.0); HEMOGLOBIN. 9.6 g/dL (14.0-18.0); LYMPHOCYTES % 21.7 % (20.0-50.0); MEAN CORPUSCULAR HEMOGLOBIN 29.3 pg (28.0-32.0); MEAN PLATELET VOLUME 8.3 fl (7.4-10.4); MONOCYTES % 6.7 % (2.0-8.0); NEUTROPHILS % 69.8 % (40.0-76.0); PLATELET 333 x1000/uL (130-400); RED BLOOD CELL COUNT 3.29 mill/uL (4.7-6.1); RED CELL DISTRIBUTION WIDTH 16.2 % (11.6-14.6)
[2021-05-20 18:29] LABS: CHLORIDE 101 mEq/L (98-107)
[2021-05-20] MEDS ORDERED: FUROSEMIDE 40MG/4ML VIAL IVP NR (19:15)
[2021-05-20] MEDS ORDERED: AZITHROMYCIN 500 MG in DEXT 5% WATER 250 ML IV SCH (19:15)
[2021-05-20] MEDS ORDERED: CEFTRIAXONE 1 G PREMIX 50 ML IV NR (19:15)
[2021-05-20] MEDS ORDERED: AZITHROMYCIN 500MG/250ML 250 ML IV NR (19:30)
[2021-05-21] MEDS ORDERED: FUROSEMIDE 40MG/4ML VIAL IVP SCH (10:45)
[2021-05-21] MEDS ORDERED: ONDANSETRON HCL 4MG/2ML INJ IV PRN (10:45)
[2021-05-21] MEDS: AMLODIPINE 10MG TABLET PO SCH (11:01)
[2021-05-21] MEDS: LOSARTAN POTASSIUM 50 MG TABLET PO SCH (11:01)
[2021-05-21] MEDS: ACETAMINOPHEN 325MG TABLET PO PRN (13:15)
[2021-05-21] MEDS ORDERED: NALOXONE HCL 0.4MG/ML VIAL IV PRN (16:45)
[2021-05-21] MEDS: TRAMADOL 50MG TABLET PO PRN (17:01)
[2021-05-22] MEDS: TRAMADOL 50MG TABLET PO PRN ×2 (02:48→14:59)
[2021-05-22 09:00] VITALS: BP 127/46
[2021-05-22 09:24] VITALS: BP 124/76
[2021-05-22] MEDS: FUROSEMIDE 40MG/4ML VIAL IVP SCH ×2 (09:57→18:03)
[2021-05-22] MEDS: LOSARTAN POTASSIUM 50 MG TABLET PO SCH (09:57)
[2021-05-22] MEDS: AMLODIPINE 10MG TABLET PO SCH (09:57)
[2021-05-22] MEDS: IPRATROPIUM/ALBUTEROL 0.5-3(2.5)MG/3ML NEB HHN PRN (16:28)
[2021-05-22 20:00] VITALS: BP 91/64
[2021-05-22] MEDS: ENOXAPARIN 40MG/0.4ML SYR SUBCUT SCH (20:30)
[2021-05-22] MEDS: ACETAMINOPHEN 325MG TABLET PO PRN (22:00)
[2021-05-23] VITALS: BP 96/66
[2021-05-23 04:00] VITALS: BP 108/68
[2021-05-23 08:00] VITALS: BP 111/70
[2021-05-23] MEDS: IPRATROPIUM/ALBUTEROL 0.5-3(2.5)MG/3ML NEB HHN SCH ×2 (08:36→15:06)
[2021-05-23] MEDS: AMLODIPINE 10MG TABLET PO SCH (09:00)
[2021-05-23] MEDS: IPRATROPIUM/ALBUTEROL 0.5-3(2.5)MG/3ML NEB HHN PRN (09:23)
[2021-05-23] MEDS: FUROSEMIDE 40MG/4ML VIAL IVP SCH ×2 (09:55→16:28)
[2021-05-23] MEDS: LOSARTAN POTASSIUM 50 MG TABLET PO SCH (09:58)
[2021-05-23] MEDS: TRAMADOL 50MG TABLET PO PRN ×2 (09:58→17:49)
[2021-05-23 12:00] VITALS: BP 114/67
[2021-05-23] MEDS: PREDNISONE 20MG TABLET PO SCH (12:02)
[2021-05-23 14:14] LABS: BG BASE EXCESS -0.4 mmol/L (-2.0-2.0); BG CARBOXYHEMOGLOBIN 0.3 % (0.5-1.5); BG DEOXYHEMOGLOBIN 6.6 % (0.0-5.0); BG FRACTION INSPIRED OXYGEN 21; BG HCO3 ACT 22.7 mmol/L (22.0-26.0); BG METHEMOGLOBIN 0.4 % (0.0-1.5); BG OXYGEN SATURATION 93.4 % (92.0-98.5); BG OXYHEMOGLOBIN 92.7 % (94.0-97.0); BG PCO2 31.2 mmHg (35.0-45.0); BG PO2 64.1 mmHg (75.0-100.0); BG SAMPLE SITE LEFT RADIAL; BG TOTAL HEMOGLOBIN 9.1 g/dL (12.0-18.0); BG VENT MODE ROOM AIR
[2021-05-23 16:00] VITALS: BP 112/69
[2021-05-23 16:48] LABS: HEMATOCRIT. 26.6 % (42.0-52.0); HEMOGLOBIN. 9.2 g/dL (14.0-18.0); MEAN CORPUSCULAR HEMOGLOBIN 29.8 pg (28.0-32.0); MEAN CORPUSCULAR VOLUME 86.5 fL (80.0-94.0); MEAN PLATELET VOLUME 8.6 fl (7.4-10.4); PLATELET 283 x1000/uL (130-400); RED BLOOD CELL COUNT 3.08 mill/uL (4.7-6.1); RED CELL DISTRIBUTION WIDTH 16.8 % (11.6-14.6)
[2021-05-23 17:14] LABS: PLATELET ESTIMATE NORMAL
[2021-05-23 18:41] LABS: CHLORIDE 103 mEq/L (98-107)
[2021-05-23 20:00] VITALS: BP_SYST 109; BP_SYST 118; BP_DIAS 66; BP_DIAS 69
[2021-05-23] MEDS: ENOXAPARIN 40MG/0.4ML SYR SUBCUT SCH (21:02)
[2021-05-24] VITALS: BP 116/78
[2021-05-24] MEDS: TRAMADOL 50MG TABLET PO PRN ×4 (02:37→21:53)
[2021-05-24 04:00] VITALS: BP 102/63
[2021-05-24 07:45] LABS: BASOPHILS % 0.1 % (0.0-2.0); HEMATOCRIT. 25.2 % (42.0-52.0); HEMOGLOBIN. 8.5 g/dL (14.0-18.0); MEAN CORPUSCULAR HEMOGLOBIN 29.4 pg (28.0-32.0); MEAN CORPUSCULAR VOLUME 87.3 fL (80.0-94.0); MEAN PLATELET VOLUME 8.4 fl (7.4-10.4); MONOCYTES % 2.9 % (2.0-8.0); PLATELET 269 x1000/uL (130-400); RED BLOOD CELL COUNT 2.88 mill/uL (4.7-6.1); RED CELL DISTRIBUTION WIDTH 17.5 % (11.6-14.6)
[2021-05-24 08:00] VITALS: BP 120/70
[2021-05-24 08:13] LABS: CHLORIDE 104 mEq/L (98-107)
[2021-05-24] MEDS: AMLODIPINE 10MG TABLET PO SCH (09:47)
[2021-05-24] MEDS: PREDNISONE 20MG TABLET PO SCH (09:48)
[2021-05-24] MEDS: FUROSEMIDE 40MG/4ML VIAL IVP SCH ×2 (09:49→16:15)
[2021-05-24] MEDS: LOSARTAN POTASSIUM 50 MG TABLET PO SCH (09:57)
[2021-05-24 12:00] VITALS: BP 104/71
[2021-05-24] MEDS: IPRATROPIUM/ALBUTEROL 0.5-3(2.5)MG/3ML NEB HHN SCH ×3 (12:23→21:47)
[2021-05-24 16:00] VITALS: BP 114/72
[2021-05-24] MEDS: POTASSIUM CHLORIDE 20MEQ TABLET SR PO SCH (16:15)
[2021-05-24 20:00] VITALS: BP 114/67
[2021-05-24] MEDS: ENOXAPARIN 40MG/0.4ML SYR SUBCUT SCH (21:52)
[2021-05-25] VITALS: BP 139/80
[2021-05-25] MEDS: IPRATROPIUM/ALBUTEROL 0.5-3(2.5)MG/3ML NEB HHN SCH ×10 (01:20→20:00)
[2021-05-25 04:00] VITALS: BP 112/70
[2021-05-25] MEDS: TRAMADOL 50MG TABLET PO PRN ×3 (04:51→20:06)
[2021-05-25 08:00] VITALS: BP 118/86
[2021-05-25] MEDS: FUROSEMIDE 40MG/4ML VIAL IVP SCH ×2 (08:15→16:06)
[2021-05-25] MEDS: AMLODIPINE 10MG TABLET PO SCH (08:16)
[2021-05-25] MEDS: PREDNISONE 20MG TABLET PO SCH (08:16)
[2021-05-25] MEDS: POTASSIUM CHLORIDE 20MEQ TABLET SR PO SCH (08:16)
[2021-05-25] MEDS: LOSARTAN POTASSIUM 50 MG TABLET PO SCH (08:16)
[2021-05-25 10:41] LABS: BASOPHILS % 0.1 % (0.0-2.0); EOSINOPHILS % 0.3 % (0.0-5.0); HEMATOCRIT. 27.7 % (42.0-52.0); HEMOGLOBIN. 9.3 g/dL (14.0-18.0); LYMPHOCYTES % 14.5 % (20.0-50.0); MEAN CORPUSCULAR HEMOGLOBIN 29.7 pg (28.0-32.0); MEAN CORPUSCULAR VOLUME 88.1 fL (80.0-94.0); MONOCYTES % 5.6 % (2.0-8.0); NEUTROPHILS % 79.5 % (40.0-76.0); RED BLOOD CELL COUNT 3.14 mill/uL (4.7-6.1); RED CELL DISTRIBUTION WIDTH 17.3 % (11.6-14.6)
[2021-05-25 10:43] LABS: CHLORIDE 100 mEq/L (98-107)
[2021-05-25 11:49] LABS: PLATELET 244 x1000/uL (130-400)
[2021-05-25] MEDS ORDERED: FURO-151 MT (11:53)
[2021-05-25] MEDS ORDERED: POTA20TA82 PO (11:53)
[2021-05-25] MEDS ORDERED: LOSA50TA3 PO (11:53)
[2021-05-25] MEDS ORDERED: AMLO10TA80 PO (11:53)
[2021-05-25 12:00] VITALS: BP 129/78
[2021-05-25 16:00] VITALS: BP 110/69
[2021-05-25 20:00] VITALS: BP 112/65
[2021-05-25] MEDS: ENOXAPARIN 40MG/0.4ML SYR SUBCUT SCH (20:06)
[2021-05-26] VITALS: BP 138/70
[2021-05-26] MEDS: IPRATROPIUM/ALBUTEROL 0.5-3(2.5)MG/3ML NEB HHN SCH ×3 (01:45→13:05)
[2021-05-26 04:00] VITALS: BP 131/83
[2021-05-26] MEDS: TRAMADOL 50MG TABLET PO PRN (05:51)
[2021-05-26 08:00] VITALS: BP 114/65
[2021-05-26] MEDS: LOSARTAN POTASSIUM 50 MG TABLET PO SCH (09:50)
[2021-05-26] MEDS: POTASSIUM CHLORIDE 20MEQ TABLET SR PO SCH (09:50)
[2021-05-26] MEDS: AMLODIPINE 10MG TABLET PO SCH (09:50)
[2021-05-26] MEDS: PREDNISONE 20MG TABLET PO SCH (09:52)
[2021-05-26] MEDS: FUROSEMIDE 40MG/4ML VIAL IVP SCH (10:13)
[2021-05-26 12:00] VITALS: BP 133/77
[2021-05-26 13:02] VITALS: BP 133/77
== END 2021-05-26 14:00 | disposition home or self-care (01) | DRG 194 ==
LOC: ER 16:34 → 8WST 20:30 → ENRESERV 05-22 07:41
PROVIDERS: ADMIT Internal Medicine; ATTEND Internal Medicine
DX: I11.0 Hypertensive heart disease with heart failure (principal); J96.01 Acute respiratory failure with hypoxia; E44.0 Moderate protein-calorie malnutrition; J44.1 Chronic obstructive pulmonary disease with (acute) exacerbation; I50.33 Acute on chronic diastolic (congestive) heart failure; D64.9 Anemia, unspecified; E87.6 Hypokalemia; G47.33 Obstructive sleep apnea (adult) (pediatric); Z20.822 Contact with and (suspected) exposure to COVID-19; R74.01 Elevation of levels of liver transaminase levels; Z59.00 Homelessness unspecified; Z68.26 Body mass index [BMI] 26.0-26.9, adult; Z79.899 Other long term (current) drug therapy
CPT/HCPCS: 36415; 36600; 71045; 80048; 80053; 82375; 82805; 83880; 84484; 85025; 87015; 87045; 87426; 87427; 87449; 93005; 93306; 94640; 96365; 96368; 96375; 96376; 99285; J0456; J0696; J1650; J1940; J2405; J7512